=== PATIENT | male | born 1960 | race Caucasian/White ===

== ENCOUNTER 2018-03-08 08:00 | Outpatient (CLI) | payer OTHER ==
[2018-03-08 18:10] LABS: BASOPHILS % (AUTO) 0.5 %; EOSINOPHILS # (AUTO) 0.2 10^3/uL (0.0-0.7); EOSINOPHILS % (AUTO) 2.3 %; HGB - HEMOGLOBIN 14.5 g/dL (14.0-18.0); LYMPHOCYTES # (AUTO) 2.4 10^3/uL (1.5-3.5); MEAN CORPUSCULAR HEMOGLOBIN 31.4 pg (27.0-31.0); MEAN CORPUSCULAR HGB CONC 34.2 g/dL (32.0-36.0); MEAN CORPUSCULAR VOLUME 91.8 fL (80.0-94.0); MEAN PLATELET VOLUME 8.3 fL (7.4-11.4); MONOCYTES # (AUTO) 0.8 10^3/uL (0.0-1.0); MONOCYTES % (AUTO) 10.6 %; NEUTROPHILS # (AUTO) 3.8 10^3/uL (1.5-6.6); NEUTROPHILS % (AUTO) 53.6 %; PLT - PLATELET COUNT 269 10^3/uL (130-450); RED BLOOD COUNT 4.61 10^6/uL (4.70-6.10); RED CELL DISTRIBUTION WIDTH 13.4 % (12.0-15.0); WHITE BLOOD COUNT 7.1 x10^3/uL (4.8-10.8)
[2018-03-08 18:39] LABS: ALBUMIN/GLOBULIN RATIO 1.7 (1.0-2.2); ALKALINE PHOSPHATASE 53 IU/L (42-121); ALT ALANINE AMINOTRANSFERASE 39 IU/L (10-60); AST ASPARTATE AMINOTRANSFERASE 27 IU/L (10-42); BILIRUBIN,TOTAL 0.9 mg/dL (0.2-1.0); BUN - BLOOD UREA NITROGEN 19 mg/dL (6-20); CALCIUM 9.3 mg/dL (8.5-10.3); CARBON DIOXIDE - CO2 29 mmol/L (21-32); CHLORIDE 100 mmol/L (101-111); CHOL/HDL RATIO 2.9 (<5.0); CHOLESTEROL 261 mg/dL; CREATININE 0.7 mg/dL (0.6-1.2); GFR - MDRD 116 (>89); GLUCOSE 97 mg/dL (70-100); HDL CHOLESTEROL 89 mg/dL; LDL CHOLESTEROL,CALCULATED 161 mg/dL; LDL/HDL RATIO 1.8 (<3.6); SODIUM 136 mmol/L (135-145); VLDL CHOLESTEROL 11 mg/dL
[2018-03-08 19:11] LABS: HB2 TOTAL 15.8 g/dL; HEMOGLOBIN A1C 0.64 g/dL; HEMOGLOBIN A1C % 5.9 % (4.6-6.2)
== END 2018-03-08 23:59 | disposition home or self-care (01) ==
LOC: LAB.R 08:00
PROVIDERS: ATTEND Internal Medicine
DX: Z00.00 Encounter for general adult medical examination without abnormal findings (principal); E55.9 Vitamin D deficiency, unspecified; R73.9 Hyperglycemia, unspecified; E78.5 Hyperlipidemia, unspecified
CPT/HCPCS: 80053; 80061; 82306; 83036; 83721; 84153; 85025

== ENCOUNTER 2018-06-26 15:04 | Outpatient (CLI) | payer OTHER | END 2018-06-26 15:05 | disposition home or self-care (01) | LOC: SC 15:04 | PROVIDERS: ATTEND Internal Medicine Pulmonary Disease | DX: R06.81 Apnea, not elsewhere classified (principal); G47.8 Other sleep disorders; R06.83 Snoring; E66.9 Obesity, unspecified; Z68.35 Body mass index [BMI] 35.0-35.9, adult | CPT/HCPCS: 99203; 99212 ==

== ENCOUNTER 2018-12-11 17:34 | Outpatient (CLI) | payer OTHER ==
[2018-12-11 18:05] LABS: HB2 TOTAL 15.8 g/dL; HEMOGLOBIN A1C 0.6 g/dL; HEMOGLOBIN A1C % 5.6 % (4.6-6.2)
[2018-12-11 18:06] LABS: BASOPHILS % (AUTO) 0.5 %; EOSINOPHILS # (AUTO) 0.2 10^3/uL (0.0-0.7); EOSINOPHILS % (AUTO) 2.3 %; HGB - HEMOGLOBIN 14.5 g/dL (14.0-18.0); LYMPHOCYTES # (AUTO) 2.3 10^3/uL (1.5-3.5); LYMPHOCYTES % (AUTO) 30.7 %; MEAN CORPUSCULAR HEMOGLOBIN 30.1 pg (27.0-31.0); MEAN CORPUSCULAR HGB CONC 32.6 g/dL (32.0-36.0); MEAN CORPUSCULAR VOLUME 92.5 fL (80.0-94.0); MEAN PLATELET VOLUME 9.5 fL (7.4-11.4); MONOCYTES # (AUTO) 0.9 10^3/uL (0.0-1.0); MONOCYTES % (AUTO) 11.6 %; NEUTROPHILS # (AUTO) 4.1 10^3/uL (1.5-6.6); NEUTROPHILS % (AUTO) 54.6 %; PLT - PLATELET COUNT 306 10^3/uL (130-450); RED BLOOD COUNT 4.81 10^6/uL (4.70-6.10); RED CELL DISTRIBUTION WIDTH 13.5 % (12.0-15.0); WHITE BLOOD COUNT 7.5 x10^3/uL (4.8-10.8)
[2018-12-11 18:09] LABS: ALBUMIN 4.9 g/dL (3.2-5.5); ALBUMIN/GLOBULIN RATIO 1.7 (1.0-2.2); ALKALINE PHOSPHATASE 52 IU/L (42-121); ALT ALANINE AMINOTRANSFERASE 37 IU/L (10-60); AST ASPARTATE AMINOTRANSFERASE 27 IU/L (10-42); BILIRUBIN,TOTAL 0.9 mg/dL (0.2-1.0); BUN - BLOOD UREA NITROGEN 19 mg/dL (6-20); CALCIUM 9.7 mg/dL (8.5-10.3); CARBON DIOXIDE - CO2 27 mmol/L (21-32); CHLORIDE 102 mmol/L (101-111); CHOLESTEROL 258 mg/dL; CREATININE 0.7 mg/dL (0.6-1.2); GFR - MDRD 116 (>89); GLUCOSE 111 mg/dL (70-100); HDL CHOLESTEROL 85 mg/dL; SODIUM 139 mmol/L (135-145); TOTAL PROTEIN 7.8 g/dL (6.7-8.2)
== END 2018-12-11 17:35 | disposition home or self-care (01) ==
LOC: LAB 17:34
PROVIDERS: ATTEND Family Medicine
DX: E66.01 Morbid (severe) obesity due to excess calories (principal); R73.9 Hyperglycemia, unspecified; M54.5 Low back pain; I10 Essential (primary) hypertension
CPT/HCPCS: 36415; 80053; 80061; 83036; 83721; 84443; 85025

== ENCOUNTER 2020-02-26 08:00 | Outpatient (CLI) | payer OTHER ==
[2020-02-26 11:51] LABS: BASOPHILS % (AUTO) 0.3 %; EOSINOPHILS # (AUTO) 0.2 10^3/uL (0.0-0.7); EOSINOPHILS % (AUTO) 2.7 %; HGB - HEMOGLOBIN 14.8 g/dL (14.0-18.0); LYMPHOCYTES # (AUTO) 2.1 10^3/uL (1.5-3.5); LYMPHOCYTES % (AUTO) 34.4 %; MEAN CORPUSCULAR HEMOGLOBIN 30.3 pg (27.0-31.0); MEAN CORPUSCULAR HGB CONC 33.1 g/dL (32.0-36.0); MEAN CORPUSCULAR VOLUME 91.6 fL (80.0-94.0); MEAN PLATELET VOLUME 10.2 fL (7.4-11.4); MONOCYTES # (AUTO) 0.7 10^3/uL (0.0-1.0); MONOCYTES % (AUTO) 11.5 %; NEUTROPHILS % (AUTO) 50.6 %; PLT - PLATELET COUNT 301 10^3/uL (130-450); RED BLOOD COUNT 4.88 10^6/uL (4.70-6.10)
[2020-02-26 12:18] LABS: ALBUMIN 4.8 g/dL (3.2-5.5); ALBUMIN/GLOBULIN RATIO 1.7 (1.0-2.2); ALKALINE PHOSPHATASE 57 IU/L (42-121); ALT ALANINE AMINOTRANSFERASE 34 IU/L (10-60); AST ASPARTATE AMINOTRANSFERASE 27 IU/L (10-42); BILIRUBIN,TOTAL 0.9 mg/dL (0.2-1.0); BUN - BLOOD UREA NITROGEN 17 mg/dL (6-20); CALCIUM 9.3 mg/dL (8.5-10.3); CARBON DIOXIDE - CO2 25 mmol/L (21-32); CHLORIDE 102 mmol/L (101-111); CHOL/HDL RATIO 2.6 (<5.0); CHOLESTEROL 256 mg/dL; CREATININE 0.7 mg/dL (0.6-1.2); GLUCOSE 109 mg/dL (70-100); HDL CHOLESTEROL 97 mg/dL; SODIUM 138 mmol/L (135-145); TOTAL PROTEIN 7.7 g/dL (6.7-8.2)
== END 2020-02-26 23:59 | disposition home or self-care (01) ==
LOC: LAB.WCP 08:00
PROVIDERS: ATTEND Family Medicine
DX: I10 Essential (primary) hypertension (principal); E78.5 Hyperlipidemia, unspecified; R73.9 Hyperglycemia, unspecified; E55.9 Vitamin D deficiency, unspecified; K21.9 Gastro-esophageal reflux disease without esophagitis; E66.01 Morbid (severe) obesity due to excess calories
CPT/HCPCS: 36415; 80053; 80061; 82306; 83036; 83721; 84153; 84443; 85025

== ENCOUNTER 2020-03-22 14:00 | Outpatient (CLI) | payer OTHER ==
[2020-03-22 16:30] LABS: H. PYLORIS ANTIGEN STL NEGATIVE (Negative)
== END 2020-03-22 23:59 | disposition home or self-care (01) ==
LOC: LAB.R 14:00
PROVIDERS: ATTEND Family Medicine
DX: K21.9 Gastro-esophageal reflux disease without esophagitis (principal)
CPT/HCPCS: 87338

== ENCOUNTER 2020-04-26 10:06 | Outpatient (CLI) | payer OTHER | END 2020-04-26 10:07 | disposition home or self-care (01) | LOC: LAB 10:06 | DX: R97.20 Elevated prostate specific antigen [PSA] (principal) | CPT/HCPCS: 36415; 84153 ==

== ENCOUNTER 2021-02-24 08:52 | Outpatient (CLI) | payer OTHER ==
[2021-02-24 13:18] LABS: BASOPHILS % (AUTO) 0.8 %; EOSINOPHILS # (AUTO) 0.1 10^3/uL (0.0-0.7); EOSINOPHILS % (AUTO) 1.9 %; HCT - HEMATOCRIT 42.4 % (42.0-52.0); HGB - HEMOGLOBIN 14.1 g/dL (14.0-18.0); LYMPHOCYTES # (AUTO) 1.5 10^3/uL (1.5-3.5); LYMPHOCYTES % (AUTO) 40.4 %; MEAN CORPUSCULAR HEMOGLOBIN 30.9 pg (27.0-31.0); MEAN CORPUSCULAR HGB CONC 33.3 g/dL (32.0-36.0); MEAN PLATELET VOLUME 9.6 fL (7.4-11.4); MONOCYTES # (AUTO) 0.6 10^3/uL (0.0-1.0); MONOCYTES % (AUTO) 16.4 %; NEUTROPHILS # (AUTO) 1.5 10^3/uL (1.5-6.6); NEUTROPHILS % (AUTO) 40.2 %; PLT - PLATELET COUNT 291 10^3/uL (130-450); RED BLOOD COUNT 4.56 10^6/uL (4.70-6.10); RED CELL DISTRIBUTION WIDTH 13.2 % (12.0-15.0); WHITE BLOOD COUNT 3.7 x10^3/uL (4.8-10.8)
[2021-02-24 13:33] LABS: ALBUMIN/GLOBULIN RATIO 2.1 (1.0-2.2); ALKALINE PHOSPHATASE 52 IU/L (42-121); ALT ALANINE AMINOTRANSFERASE 29 IU/L (10-60); AST ASPARTATE AMINOTRANSFERASE 28 IU/L (10-42); BILIRUBIN,TOTAL 0.7 mg/dL (0.2-1.0); BUN - BLOOD UREA NITROGEN 17 mg/dL (6-20); CALCIUM 9.4 mg/dL (8.5-10.3); CARBON DIOXIDE - CO2 29 mmol/L (21-32); CHLORIDE 99 mmol/L (101-111); CHOL/HDL RATIO 2.6 (<5.0); CHOLESTEROL 273 mg/dL; CREATININE 0.6 mg/dL (0.6-1.2); GFR - MDRD 137 (>89); GLUCOSE 114 mg/dL (70-100); HDL CHOLESTEROL 106 mg/dL; POTASSIUM 4.1 mmol/L (3.5-5.0); SODIUM 137 mmol/L (135-145); TOTAL PROTEIN 7.4 g/dL (6.7-8.2); TRIGLYCERIDES 24 mg/dL
== END 2021-02-24 08:53 | disposition home or self-care (01) ==
LOC: LAB.N 08:52
PROVIDERS: ATTEND Family Medicine
DX: I10 Essential (primary) hypertension (principal); Z12.5 Encounter for screening for malignant neoplasm of prostate
CPT/HCPCS: 36415; 80053; 80061; 83721; 84153; 85025

== ENCOUNTER 2021-04-02 11:27 | Emergency (ER) | payer OTHER ==
[2021-04-02 11:42] VITALS: BP 146/85
--- NOTE | 2021-04-02 12:02 | ED Physician Documentation ---
History of Present Illness - Stated complaint Stated Complaint: NECK PX,SHOULDER PX - Chief complaint Chief Complaint: General - History obtained from History obtained from: Patient - History of Present Illness Timing: How many days ago Pain level max: 6 Pain level now: 4 - Additonal information Additional information: 60-year-old male states he was at work 3 days ago when he slipped on ice injuring his right shoulder and the right side of his neck. He has taken the last 2 to 3 days off of work and now needs a note for work. Worse with movement, better with rest. No loss of consciousness. No numbness or tingling. No headache. Review of Systems Ten Systems: 10 systems reviewed and negative Constitutional: denies: Fever, Chills Respiratory: denies: Cough GI: denies: Nausea, Vomiting, Diarrhea Skin: denies: Rash Musculoskeletal: denies: Neck pain, Back pain Neurologic: denies: Headache PD PAST MEDICAL HISTORY - Past Medical History Past Medical History: No - Allergies Allergies/Adverse Reactions: Allergies Allergy/AdvReac Type Severity Reaction Status Date / Time No Known Drug Allergies Allergy Verified 04/02/21 11:42 - Living Situation Living Arrangement: reports: At home - Social History Does the pt have substance abuse?: No - Family History Family history: reports: Non contributory PD ED PE NORMAL - Vitals Vital signs reviewed: Yes - General General: Alert and oriented X 3, No acute distress, Well developed/nourished - HEENT HEENT: Atraumatic, Moist mucous membranes - Neck Neck: Supple, no meningeal sign, No bony TTP, C-Spine cleared by NEXUS criteria - Cardiac Cardiac: RRR, Strong equal pulses - Respiratory Respiratory: No respiratory distress, Clear bilaterally - Abdomen Abdomen: Soft, Non tender, Non distended - Back Back: No spinal TTP - Derm Derm: Warm and dry - Extremities Extremities: Other (no bony tenderness over the R shoulder, R clavicle or cervical spine. NVI. FROM without pain. no rotator cuff tednerness.) - Neuro Neuro: Alert and oriented X 3 - Psych Psych: Normal mood, Normal affect Results - Vitals Vitals: Vital Signs - 24 hr 04/02/21 11:38 Temperature 36 C L Heart Rate 96 Respiratory 15 Rate Blood Pressure 146/85 H O2 Saturation 100 Oxygen O2 Source Room air PD MEDICAL DECISION MAKING - ED course Complexity details: considered differential, d/w patient ED course: 60 year old male with R shoulder pain s/p fall 2 days ago. worse with movement and better with rest. No indication for x-ray at this time. Appears to be a soft tissue injury. We will have him follow-up with his doctor for further care. We will continue to use Motrin and/or Tylenol as needed for pain. Patient counseled regarding signs and symptoms for which I believe and urgent re -evaluation would be necessary. Patient with good understanding of and agreement to plan and is comfortable going home at this time This document was made in part using voice recognition software. While efforts are made to proofread this document, sound alike and grammatical errors may occur. L&I paperwork filled out Departure - Departure Disposition: 01 Home, Self Care Clinical Impression: Right shoulder strain Qualifiers: Encounter type: initial encounter Qualified Code(s): S46.911A - Strain of unspecified muscle, fascia and tendon at shoulder and upper arm level, right arm, initial encounter Neck strain Qualifiers: Encounter type: initial encounter Qualified Code(s): S16.1XXA - Strain of muscle, fascia and tendon at neck level, initial encounter Condition: Good Instructions: ED Sprain Strain Neck, ED Sprain Shoulder Follow-Up: Hannah Mckenzie DO [Primary Care Provider] - Within 1 week Comments: Please follow-up with your doctor for further care. Return if you worsen. Continue Motrin, Tylenol and gentle stretching at home. Forms: Activity restrictions
== END 2021-04-02 12:27 | disposition home or self-care (01) ==
LOC: ED 11:27
DX: S46.911A Strain of unspecified muscle, fascia and tendon at shoulder and upper arm level, right arm, initial encounter (principal); S16.1XXA Strain of muscle, fascia and tendon at neck level, initial encounter; W00.0XXA Fall on same level due to ice and snow, initial encounter; Y99.0 Civilian activity done for income or pay
CPT/HCPCS: 99282

== ENCOUNTER 2021-07-16 06:26 | Day surgery (SDC) | payer OTHER ==
[2021-07-16] MEDS ORDERED: LACTATED RINGERS 1,000 ML IV ONE ×2 (06:49→08:11)
[2021-07-16] MEDS ORDERED: PROPOFOL 500 MG/50 ML 500 MG/50 ML VIAL ONE (07:11)
--- NOTE | 2021-07-16 07:11 | ANESTHESIA ---
Pre-Anesthesia VS, & Labs - Diagnosis screening - Procedure colonoscopy Vital Signs: Temp Pulse Resp BP Pulse Ox 36.4 C L 75 16 155/96 H 97 07/16/21 06:38 07/16/21 06:38 07/16/21 06:38 07/16/21 06:38 07/16/21 06:38 Height: 6 ft Weight (kg): 105.2 kg Body Mass Index: 31.4 BMI Classification: Obese - NPO >8 hours Home Medications and Allergies Home Medications: Ambulatory Orders Lisinopril [Zestril] 40 mg PO DAILY 07/15/21 Multivitamin 1 each PO DAILY 07/15/21 amLODIPine [Norvasc] 10 mg PO DAILY 07/15/21 Lisinopril [Zestril] 40 mg PO DAILY 07/15/21 Multivitamin 1 each PO DAILY 07/15/21 amLODIPine [Norvasc] 10 mg PO DAILY 07/15/21 Allergies/Adverse Reactions: Allergies Allergy/AdvReac Type Severity Reaction Status Date / Time No Known Drug Allergies Allergy Verified 04/02/21 11:42 Anes History & Medical History - Anesthetic History Anesthesia Complications: reports: No previous complications Family history of Anesthesia Complications: Denies Family history of Malignant Hyperthermia: Denies - Medical History Cardiovascular: reports: None Pulmonary: reports: None Gastrointestinal: reports: GERD Urinary: reports: None Neuro: reports: None Musculoskeletal: reports: None Endocrine/Autoimmune: reports: None Blood Disorders: reports: None Skin: reports: None Smoking Status: Never smoker - Surgical History General: reports: Colonoscopy Orthopedic: reports: Carpal Tunnel surgery Exam General: Alert, Oriented x3, Cooperative, No acute distress Dental: WNL Mouth Openin Fingerbreadth Neck Mobility: Normal Mallampati classification: II Plan Anesthesia Type: General, Total IV Consent for Procedure(s) Verified and Reviewed: Yes Code Status: Attempt Resuscitation ASA classification: 2-Mild systemic disease Is this case an emergency?: No
--- NOTE | 2021-07-16 07:21 | HISTORY & PHYSICAL EXAMINATION ---
Chief Complaint - Chief Complaint Chief Complaint: here for colon cancer screening History of Present Illness - History Obtained From Records Reviewed: yes History obtained from: pt Exam Limitations: none - History of Present Illness HPI Comment/Other: normal colonoscopy 11 years ago. here for colon cancer screening. no problems History - Past Medical History Cardiovascular: reports: None Respiratory: reports: None Neuro: reports: None Endocrine/Autoimmune: reports: None GI: reports: GERD : reports: None HEENT: reports: None Psych: reports: None Musculoskeletal: reports: None Derm: reports: None MRSA Hx?: No - Past Surgical History General: reports: Colonoscopy Ortho: reports: Carpal Tunnel surgery Meds/Allgy - Home Medications Home Medications: Ambulatory Orders Medication Instructions Recorded Confirmed Lisinopril [Zestril] 40 mg PO DAILY 07/15/21 07/15/21 Multivitamin 1 each PO DAILY 07/15/21 07/15/21 amLODIPine [Norvasc] 10 mg PO DAILY 07/15/21 07/15/21 - Allergies Allergies/Adverse Reactions: Allergies Allergy/AdvReac Type Severity Reaction Status Date / Time No Known Drug Allergies Allergy Verified 04/02/21 11:42 Review of Systems - Other Findings Other Findings: 10 pt ros as above otherwise unremarkable Exam - Vital Signs Vital Signs: Vital Signs x48h Temp Pulse Resp BP Pulse Ox 07/16/21 06:38 36.4 C L 75 16 155/96 H 97 - Physical Exam General Appearance: positive: No acute distress, Alert Eyes Bilateral: positive: PERRL, EOMI, No scleral icterus ENT: positive: No signs of dehydration Neck: positive: No JVD Respiratory: positive: No respiratory distress, Breath sounds nml Cardiovascular: positive: Regular rate & rhythm Abdomen: positive: Non-tender, No distention Neurologic/Psychiatric: positive: Oriented x3 Conclusion/Plan - Problem List (1) Colon cancer screening Conclusion/Plan: plan colonoscopy. parq held and consent obtained
[2021-07-16] MEDS ORDERED: PROPOFOL 200 MG/20 ML VIAL IVP ONE (08:00)
[2021-07-16 08:31] VITALS: BP 132/86
--- NOTE | 2021-07-16 08:54 | ANESTHESIA POST OP EVALUATION ---
Anesthesia Post Eval - Post Anesthesia Eval Vitals: Last Vital Signs Temp 36.7 C 07/16/21 08:30 Pulse 72 07/16/21 08:30 Resp 18 07/16/21 08:30 BP 132/86 H 07/16/21 08:30 Pulse Ox 99 07/16/21 08:30 CV Function Including HR & BP: Stable Pain Control: Satisfactory Nausea & Vomiting: Negative Mental Status: Baseline Respiratory Status: Airway Patent Hydration Status: Satisfactory Anesthesia Complications: None
== END 2021-07-16 06:27 | disposition home or self-care (01) ==
LOC: SDS 06:26
PROVIDERS: ATTEND Surgery
PROC: 0DBP8ZZ Excision of Rectum, Via Natural or Artificial Opening Endoscopic (ICD-10-PCS; principal; 2021-07-16 07:30)
DX: Z12.11 Encounter for screening for malignant neoplasm of colon (principal); D12.8 Benign neoplasm of rectum; K57.30 Diverticulosis of large intestine without perforation or abscess without bleeding; R06.83 Snoring; E66.9 Obesity, unspecified; Z68.31 Body mass index [BMI] 31.0-31.9, adult
CPT/HCPCS: 45380; 45385; J7120

== ENCOUNTER 2021-12-28 08:42 | Emergency (ER) | payer OTHER ==
[2021-12-28] MEDS ORDERED: LIDOCAINE PATCH 5% TOP STA (10:49)
[2021-12-28] MEDS ORDERED: HYDROmorphone 1 MG/ML CARPUJECT IM STA (10:49)
--- NOTE | 2021-12-28 10:50 | ED Physician Documentation ---
History of Present Illness - Stated complaint Stated Complaint: RT LEG PX - Chief complaint Chief Complaint: Back Pain - History obtained from History obtained from: Patient - Additonal information Additional information: Patient is a 61-year-old male with a history of sciatica presenting for evaluation of lower back pain radiating to the right leg which is been ongoing for 3 weeks. He reports having chronic symptoms and last had an MRI in 2007. At that time they noted a pinched nerve and bulging disc. He did see a spinal surgeon at that time who recommended holding off on surgery and he was advised to go to PT. He is unsure what caused his symptoms to flareup here recently but went to the walk-in clinic in [facility] and was started on a prednisone taper which ended today. He reports the prednisone has not helped with his pain. He was also on a muscle relaxer which has not helped. 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 He has continued to work over the last few weeks. Reports ambulating Makes his symptoms worse. Review of Systems Constitutional: denies: Fever Nose: denies: Congestion Cardiac: denies: Chest pain / pressure Respiratory: denies: Dyspnea GI: denies: Abdominal Pain : denies: Dysuria Musculoskeletal: reports: Back pain, Extremity pain Neurologic: denies: Headache PD PAST MEDICAL HISTORY - Past Medical History Cardiovascular: None Respiratory: None Neuro: None Endocrine/Autoimmune: None GI: GERD : None HEENT: None Psych: None Musculoskeletal: None Derm: None - Past Surgical History Past Surgical History: No General: Colonoscopy Ortho: Carpal Tunnel surgery - Present Medications Home Medications: Ambulatory Orders Medication Instructions Recorded Confirmed Lisinopril [Zestril] 40 mg PO DAILY 07/15/21 07/15/21 Multivitamin 1 each PO DAILY 07/15/21 07/15/21 amLODIPine [Norvasc] 10 mg PO DAILY 07/15/21 07/15/21 Lidocaine Patch 5% [Lidoderm Patch] 1 patch TOP DAILY PRN #10 patch 12/28/21 Oxycodone HCl/Acetaminophen 1 each PO Q6H PRN #14 tablet 12/28/21 [Percocet 5-325 mg Tablet] - Allergies Allergies/Adverse Reactions: Allergies Allergy/AdvReac Type Severity Reaction Status Date / Time No Known Drug Allergies Allergy Verified 04/02/21 11:42 - Social History Does the pt smoke?: No Smoking Status: Never smoker Does the pt drink ETOH?: No Does the pt have substance abuse?: No - Immunizations Immunizations are current?: Yes PD ED PE NORMAL - General General: Alert and oriented X 3, No acute distress, Well developed/nourished - HEENT HEENT: Atraumatic, Moist mucous membranes - Neck Neck: Supple, no meningeal sign, No bony TTP - Cardiac Cardiac: RRR, No murmur, Strong equal pulses - Respiratory Respiratory: No respiratory distress, Clear bilaterally - Back Back: No spinal TTP - Extremities Extremities: No deformity, No tenderness to palpate, No calf tenderness / cord, Other (Positive Sitting straight leg raise On the right, pedal pulses intact, Normal range of motion at right hip and knee without pain) - Neuro Neuro: No motor deficit, No sensory deficit, Other (Ambulatory) Results - Vitals Vitals: Vital Signs - 24 hr 12/28/21 12/28/21 12/28/21 08:56 11:17 11:18 Temperature 36.6 C 36.6 C Heart Rate 90 82 Respiratory 17 19 Rate Blood Pressure 127/86 H 106/70 87/58 L O2 Saturation 96 97 12/28/21 12/28/21 12/28/21 11:19 11:32 12:15 Temperature 36.5 C 36.7 C Heart Rate 79 82 80 Respiratory 16 Rate Blood Pressure 71/48 L 90/57 L 122/79 O2 Saturation 98 97 100 Oxygen O2 Source Room air PD MEDICAL DECISION MAKING - ED course Complexity details: re-evaluated patient, d/w patient ED course: Patient evaluated for low back pain with radiation to the right leg consistent with his history of sciatica. No red flag signs or symptoms concerning for cord compression or epidural hematoma, abscess. Patient given dose of pain medication with some improvement. He is ambulatory. Discussed need for close follow-up with his primary care doctor as he may need an outpatient MRI. He is awaiting referral to spine surgeon. He was counseled on concerning symptoms to return for. Departure - Departure Disposition: 01 Home, Self Care Clinical Impression: Right sided sciatica Condition: Stable Instructions: ED Sciatica Prescriptions: Lidocaine Patch 5% [Lidoderm Patch] 1 patch TOP DAILY PRN #10 patch PRN Reason: pain Oxycodone HCl/Acetaminophen [Percocet 5-325 mg Tablet] 1 each PO Q6H PRN #14 tablet PRN Reason: pain Comments: You appear to be having an exacerbation of your sciatica pain. I have started you on pain medication and lidocaine patches. I have sent a prescription to the [facility] pharmacy. Please call your primary care doctor for close follow-up as you may need further testing or imaging such as an MRI.If you have any worsening symptoms such as weakness in your leg, inability to control urine or bowel function, fevers or any other concerns please return to the emergency department. I am prescribing a short course of narcotic pain medication for you. These are potentially dangerous and addictive medications that should be used carefully. These medications may constipate you. Take an [id number]-und-vduckll stool softener (docusate) twice daily with plenty of water while taking these medications. If you go 24 hours without a bowel movement, take [id number] miralax, per package instructions. Do not drink or drive while taking these medications. If you received narcotic or sedating medications while in the emergency department, do not drive for 24 hours. Store this medication in a safe, secure place and out of reach of children. It is a violation of federal law to give or sell this medication to another person or to use in a manner other than prescribed. The ED will not refill narcotic prescriptions, including prescriptions lost or stolen. To dispose of unwanted medications: 1. [facility] at [address] in [place] has a medication drop box. They accept prescription medications (in pill form) Tuesday through Tuesday 9:00 a.m. to 5:00 p.m. 2. The [facility] [employer] accepts prescription medications (in pill form only) for disposal year round. Call for more information. 3. Contact the [facility] for the next [facility] sponsored prescription drug collection event. , [phone], or [phone]; Note that many narcotic pain relievers also contain Tylenol/acetaminophen. Please ensure that your total dose of acetaminophen from all sources does not exceed 3 g (3000 mg) per day. Forms: Activity restrictions Discharge Date/Time: 12/28/21 12:17
[2021-12-28 12:17] VITALS: BP 122/79
== END 2021-12-28 12:17 | disposition home or self-care (01) ==
LOC: ED 08:42
DX: M54.31 Sciatica, right side (principal)
CPT/HCPCS: 96372; 99283; 99284; A9270; J1170

== ENCOUNTER 2022-02-22 08:00 | Outpatient (CLI) | payer OTHER ==
[2022-02-22 06:46] LABS: BASOPHILS % (AUTO) 0.5 %; EOSINOPHILS # (AUTO) 0.2 10^3/uL (0.0-0.7); EOSINOPHILS % (AUTO) 4.1 %; HCT - HEMATOCRIT 42.7 % (42.0-52.0); HGB - HEMOGLOBIN 14.5 g/dL (14.0-18.0); LYMPHOCYTES # (AUTO) 2.2 10^3/uL (1.5-3.5); LYMPHOCYTES % (AUTO) 39.2 %; MEAN CORPUSCULAR HEMOGLOBIN 30.7 pg (27.0-31.0); MEAN CORPUSCULAR VOLUME 90.3 fL (80.0-94.0); MEAN PLATELET VOLUME 9.2 fL (7.4-11.4); MONOCYTES # (AUTO) 0.8 10^3/uL (0.0-1.0); MONOCYTES % (AUTO) 14.4 %; NEUTROPHILS # (AUTO) 2.3 10^3/uL (1.5-6.6); NEUTROPHILS % (AUTO) 41.6 %; PLT - PLATELET COUNT 291 10^3/uL (130-450); RED BLOOD COUNT 4.73 10^6/uL (4.70-6.10); WHITE BLOOD COUNT 5.6 x10^3/uL (4.8-10.8)
[2022-02-22 06:59] LABS: THYROID STIMULATING HORMONE 2.2 uIU/mL (0.34-5.60)
[2022-02-22 07:20] LABS: ALBUMIN 4.4 g/dL (3.2-5.5); ALBUMIN/GLOBULIN RATIO 1.4 (1.0-2.2); ALKALINE PHOSPHATASE 55 IU/L (42-121); ALT ALANINE AMINOTRANSFERASE 36 IU/L (10-60); AST ASPARTATE AMINOTRANSFERASE 22 IU/L (10-42); BILIRUBIN,TOTAL 0.7 mg/dL (0.2-1.0); BUN - BLOOD UREA NITROGEN 22 mg/dL (6-20); CALCIUM 9.4 mg/dL (8.5-10.3); CARBON DIOXIDE - CO2 25 mmol/L (21-32); CHLORIDE 106 mmol/L (101-111); CHOL/HDL RATIO 3.9 (<5.0); CHOLESTEROL 262 mg/dL; CREATININE 0.7 mg/dL (0.6-1.2); GFR - MDRD 115 (>89); GLUCOSE 110 mg/dL (70-100); HDL CHOLESTEROL 68 mg/dL; LDL CHOLESTEROL,CALCULATED 185 mg/dL; LDL/HDL RATIO 2.7 (<3.6); SODIUM 141 mmol/L (135-145); TOTAL PROTEIN 7.5 g/dL (6.7-8.2); TRIGLYCERIDES 44 mg/dL; VLDL CHOLESTEROL 9 mg/dL
[2022-02-22 08:07] LABS: ESTIMATED AVERAGE GLUCOSE 117 mg/dL (70-100); HEMOGLOBIN A1c% 5.7 % (4.27-6.07)
== END 2022-02-22 08:01 | disposition home or self-care (01) ==
LOC: LAB.R 08:00
PROVIDERS: ATTEND Physician Assistant
DX: I10 Essential (primary) hypertension (principal); E78.5 Hyperlipidemia, unspecified; R73.01 Impaired fasting glucose; R97.20 Elevated prostate specific antigen [PSA]
CPT/HCPCS: 80053; 80061; 83036; 83721; 84153; 84443; 85025

== ENCOUNTER 2022-02-24 08:00 | Outpatient (CLI) | payer OTHER | END 2022-02-24 08:01 | disposition home or self-care (01) | LOC: DI 08:00 | PROVIDERS: ATTEND Physician Assistant | DX: I34.0 Nonrheumatic mitral (valve) insufficiency (principal); I51.7 Cardiomegaly | CPT/HCPCS: 86880; 86900; 86901; 93306 ==

== ENCOUNTER 2022-05-07 17:16 | Outpatient (CLI) | payer OTHER ==
[2022-05-07 21:14] LABS: BILIRUBIN,URINE NEGATIVE (NEGATIVE); GLUCOSE, URINE (UA) NEGATIVE (NEGATIVE); KETONES,URINE (UA) NEGATIVE (NEGATIVE); LEUKOCYTE ESTERASE, URINE NEGATIVE (NEGATIVE); NITRITE,URINE NEGATIVE (NEGATIVE); OCCULT BLOOD,URINE NEGATIVE (NEGATIVE); PROTEIN,URINE NEGATIVE (NEGATIVE); UROBILINOGEN,URINE 0.2 (NORMAL) E.U./dL (NORMAL)
[2022-05-07 21:15] LABS: BASOPHILS % (AUTO) 0.4 %; EOSINOPHILS # (AUTO) 0.2 10^3/uL (0.0-0.7); HCT - HEMATOCRIT 44.9 % (42.0-52.0); HGB - HEMOGLOBIN 14.5 g/dL (14.0-18.0); LYMPHOCYTES # (AUTO) 2.7 10^3/uL (1.5-3.5); LYMPHOCYTES % (AUTO) 33.4 %; MEAN CORPUSCULAR HEMOGLOBIN 29.4 pg (27.0-31.0); MEAN CORPUSCULAR HGB CONC 32.3 g/dL (32.0-36.0); MEAN CORPUSCULAR VOLUME 90.9 fL (80.0-94.0); MEAN PLATELET VOLUME 10.9 fL (7.4-11.4); MONOCYTES # (AUTO) 0.8 10^3/uL (0.0-1.0); MONOCYTES % (AUTO) 10.3 %; NEUTROPHILS # (AUTO) 4.2 10^3/uL (1.5-6.6); NEUTROPHILS % (AUTO) 52.8 %; PLT - PLATELET COUNT 321 10^3/uL (130-450); RED BLOOD COUNT 4.94 10^6/uL (4.70-6.10); RED CELL DISTRIBUTION WIDTH 12.5 % (12.0-15.0); WHITE BLOOD COUNT 7.9 x10^3/uL (4.8-10.8)
[2022-05-07 21:16] LABS: INR 1.1 (0.8-1.2); PT - PROTHROMBIN TIME 12.5 secs (9.9-12.6)
[2022-05-07 21:26] LABS: ALBUMIN 4.7 g/dL (3.2-5.5); ALBUMIN/GLOBULIN RATIO 1.7 (1.0-2.2); BILIRUBIN,TOTAL 0.6 mg/dL (0.2-1.0); CALCIUM 9.1 mg/dL (8.5-10.3); CREATININE 0.9 mg/dL (0.6-1.2); TOTAL PROTEIN 7.4 g/dL (6.7-8.2)
[2022-05-07 21:36] LABS: BACTERIA,URINE None Seen /HPF (None Seen); CLARITY,URINE CLEAR (CLEAR); RBC,URINE None Seen /HPF (0-5); SQUAMOUS EPITHELIAL CELL,UR NONE SEEN (<= Few); WBC,URINE 0-3 /HPF (0-3)
== END 2022-05-07 17:17 | disposition home or self-care (01) ==
LOC: LAB.N 17:16
PROVIDERS: ATTEND Physician Assistant
DX: I10 Essential (primary) hypertension (principal); M54.50 Low back pain, unspecified; M54.16 Radiculopathy, lumbar region
CPT/HCPCS: 36415; 80053; 81001; 85025; 85610; 85730; 87086

== ENCOUNTER 2022-09-07 14:37 | Emergency (ER) | payer OTHER ==
[2022-09-07 14:47] VITALS: BP 130/89
--- NOTE | 2022-09-07 14:48 | ED Physician Documentation ---
PD HPI ABD PAIN - Stated complaint Stated Complaint: MALE - Chief complaint Chief Complaint: Abd Pain - History obtained from History obtained from: Patient - History of Present Illness Timing - onset: How many days ago (6) Timing - duration: Days (6) Timing - details: Gradual onset (he had back surgery 5 days ago and had not had BM since day prior to that. Some bladder area fullness and pressure with hesitancy geting urination started and feelingincomplete emptying.), Still present Quality: Cramping, Aching Location: Suprapubic, Other (and fullness feeling in rectum.) Review of Systems Constitutional: denies: Fever, Chills, Myalgias Nose: denies: Rhinorrhea / runny nose, Congestion Throat: denies: Sore throat Respiratory: denies: Cough GI: reports: Nausea, Constipation : reports: Hesitancy Skin: reports: Rash PD PAST MEDICAL HISTORY - Past Medical History Cardiovascular: None Respiratory: None Neuro: None Endocrine/Autoimmune: None GI: GERD : None HEENT: None Psych: None Musculoskeletal: None Derm: None - Past Surgical History Past Surgical History: No General: Colonoscopy Ortho: Carpal Tunnel surgery - Present Medications Home Medications: Ambulatory Orders Medication Instructions Recorded Confirmed Lisinopril [Zestril] 40 mg PO DAILY 07/15/21 07/15/21 Multivitamin 1 each PO DAILY 07/15/21 07/15/21 amLODIPine [Norvasc] 10 mg PO DAILY 07/15/21 07/15/21 Lidocaine Patch 5% [Lidoderm Patch] 1 patch TOP DAILY PRN #10 patch 12/28/21 Oxycodone HCl/Acetaminophen 1 each PO Q6H PRN #14 tablet 12/28/21 [Percocet 5-325 mg Tablet] - Allergies Allergies/Adverse Reactions: Allergies Allergy/AdvReac Type Severity Reaction Status Date / Time sulfite Allergy Respiratory Verified 09/07/22 14:46 - Social History Does the pt smoke?: No Smoking Status: Never smoker Does the pt drink ETOH?: No Does the pt have substance abuse?: No - Immunizations Immunizations are current?: Yes PD ED PE NORMAL - General General: Alert and oriented X 3, No acute distress, Well developed/nourished - Cardiac Cardiac: RRR, No murmur - Respiratory Respiratory: No respiratory distress, Clear bilaterally - Abdomen Abdomen: Normal bowel sounds, Soft, Non tender, No organomegaly, Other (fullness in suprapubic area. ) - Rectal Rectal: Other (digital exam showed just some soft stool in vault. No impaction. No hemorhoid nor bleeding. ) Results - Vitals Vitals: Vital Signs - 24 hr 09/07/22 14:42 Temperature 36.4 C L Heart Rate 85 Respiratory 16 Rate Blood Pressure 130/89 H O2 Saturation 98 Oxygen O2 Source Room air PD Medical Decision Making - ED course Complexity details: considered differential (5 days post-op back surgery without signs of infection or new illness. Has not had BM since dfay prior to surgery. Mercedes Segura as suggested by surgeon post op instructions. He is feeling some fullness in rectal area but not getting much other than smalll bits of stool. Some lower abd crampinhg.), d/w patient, d/w family ED course: he and his are present. I talked with them about starting more treatments but we don't commonly get a ton of stool out here in ER, but initiate. Can give enema here and start some softener, but the main therapy of it would continue/be at home. Given saline enema (mineral oil ones were out of stock inhospital). Also a dose of lactulose. I wondered if some of the fulllness and pressure were from bladdder insteac as there was some suprapubic fullness. he had about 55ml on bladder scan, but then voided 220 ml. shared decision to not place benjamin as this is not excessive residual that I would think overstretching of bladder. And he did vooid have of it. It seems likely opioid induced and ost-surgical slow transit constipation. Can try combno of laxatives and softeneres. His back wound looks good. Departure - Departure Disposition: 01 Home, Self Care Clinical Impression: Urinary retention, Constipation, S/P lumbar laminectomy Condition: Stable Record reviewed to determine appropriate education?: Yes Instructions: ED Constipation Follow-Up: Zoraida Aviles PA [Primary Care Provider] - Comments: Your rectal vault did not really have much stool there so not impacted at the bottom. We did give a extra enema here and hopefully that will increase some peristalsis/gut movement. It may or may not actually cleanse out some stool from the bottom per se. I would have you continue with the senna and you could also add bisacodyl. These are irritant laxatives to try to inspire the gut movement. You can also work on softening of the stool concurrently with the MiraLAX that you have at home. You can take it every 1-2 hours for several doses this evening, and resume tomorrow if still not movements yet. See if this gets your stools more moving. A lot of is just related to the pain medicine and inactivity. Some ambulation is good. You did have some partial urinary retention. I think is not enough to warrant a catheter at this point but if it does feel like you are having worsening bladder fullness, that might be needed. Return if feeling that way. Otherwise follow-up with your back surgeon. Right now your wound looks good and there are no "warning signs" of bad things. Hopefully your pain will be decreasing over the next week as the worst postoperative pain tends to be the 1 to 2 weeks initially. Discharge Date/Time: 09/07/22 16:40
[2022-09-07] MEDS ORDERED: MINERAL OIL ENEMA 133 ML BOTTLE RC STA (15:08)
[2022-09-07] MEDS ORDERED: LACTULOSE 10 GM /15 ML UDC PO STA (15:08)
[2022-09-07] MEDS ORDERED: bisacodyL 5 MG TABLET PO STA (15:09)
[2022-09-07] MEDS ORDERED: SALINE ENEMA 133 ML BOTTLE RC STA (15:17)
== END 2022-09-07 16:40 | disposition home or self-care (01) ==
LOC: ED 14:37
DX: R33.9 Retention of urine, unspecified (principal); K59.00 Constipation, unspecified
CPT/HCPCS: 51798; 99282; 99283; A9270

== ENCOUNTER 2022-09-10 02:07 | Emergency (ER) | payer OTHER ==
[2022-09-10 02:20] VITALS: O2SAT 97
[2022-09-10] MEDS ORDERED: HYDROmorphone 1 MG/ML CARPUJECT IM STA (02:36)
[2022-09-10] MEDS ORDERED: diazePAM 5 MG TABLET PO STA (02:36)
--- NOTE | 2022-09-10 02:38 | ED Physician Documentation ---
History of Present Illness - Stated complaint Stated Complaint: BODY PX/SLEEPLESS - Chief complaint Chief Complaint: Back Pain - History obtained from History obtained from: Patient, Family () - Additonal information Additional information: 62-year-old man presents postop day status postL2-L5 laminectomy and L5-S1 fusion. Patient has been having pain since the surgery refractory to Percocet. Patient was unable to sleep tonight.Denies fever, numbness, urinary or fecal incontinence or retention. PD PAST MEDICAL HISTORY - Past Medical History Cardiovascular: None Respiratory: None Neuro: None Endocrine/Autoimmune: None GI: GERD : None HEENT: None Psych: None Musculoskeletal: None Derm: None - Past Surgical History Past Surgical History: No General: Colonoscopy Ortho: Carpal Tunnel surgery - Present Medications Home Medications: Ambulatory Orders Medication Instructions Recorded Confirmed Lisinopril [Zestril] 40 mg PO DAILY 07/15/21 07/15/21 Multivitamin 1 each PO DAILY 07/15/21 07/15/21 amLODIPine [Norvasc] 10 mg PO DAILY 07/15/21 07/15/21 Lidocaine Patch 5% [Lidoderm Patch] 1 patch TOP DAILY PRN #10 patch 12/28/21 Oxycodone HCl/Acetaminophen 1 each PO Q6H PRN #14 tablet 12/28/21 [Percocet 5-325 mg Tablet] predniSONE [Prednisone 21-TAB dose 60 mg PO QDAC 6 Days #21 tab 09/10/22 pack] - Allergies Allergies/Adverse Reactions: Allergies Allergy/AdvReac Type Severity Reaction Status Date / Time sulfite Allergy Respiratory Verified 09/10/22 02:19 - Social History Does the pt smoke?: No Smoking Status: Never smoker Does the pt drink ETOH?: No Does the pt have substance abuse?: No - Immunizations Immunizations are current?: Yes PD ED PE NORMAL - Vitals Vital signs reviewed: Yes - General General: Alert and oriented X 3, No acute distress, Well developed/nourished - Back Back: Other (Surgical sites clean with milo in place. No signs of infection) - Derm Derm: Normal color, Warm and dry Results - Vitals Vitals: Vital Signs - 24 hr 09/10/22 02:14 Temperature 36.2 C L Heart Rate 84 Respiratory 17 Rate Blood Pressure 146/83 H O2 Saturation 97 Oxygen O2 Source Room air PD Medical Decision Making - ED course ED course: 62-year-old male presents with postoperative back pain. IM injection of Dilaudid provided as well as oral Valium. 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 I also provided a steroid taper for him. Return precautions given. Plan to follow-up with primary care provider Departure - Departure Disposition: Home, Self Care Clinical Impression: Back pain Condition: Stable Instructions: ED Neck Back Pain General Prescriptions: predniSONE [Prednisone 21-TAB dose pack] 60 mg PO QDAC 6 Days #21 tab Comments: You were seen in the emergency department for back pain after surgery. Please follow-up with your surgeon. Paper prescription for prednisone taper was printed out for you. Return to the emergency department for new or worsening symptoms or other concerns
[2022-09-10 03:11] VITALS: BP 142/76
== END 2022-09-10 03:05 | disposition home or self-care (01) ==
LOC: ED 02:07
DX: G89.18 Other acute postprocedural pain (principal); M79.662 Pain in left lower leg; M79.661 Pain in right lower leg; M54.9 Dorsalgia, unspecified
CPT/HCPCS: 96372; 99283; A9270; J1170; J7512

== ENCOUNTER 2022-09-10 05:01 | Outpatient (CLI) | payer OTHER | END 2022-09-10 23:59 | disposition critical access hospital (66) | LOC: EMS 05:01 | DX: M54.50 Low back pain, unspecified (principal); Z98.1 Arthrodesis status; Z72.820 Sleep deprivation | CPT/HCPCS: A0425; A0429 ==

== ENCOUNTER 2022-09-10 05:12 | Emergency (ER) | payer OTHER ==
[2022-09-10] MEDS ORDERED: KETOROLAC 30 MG/ML VIAL IM STA (05:22)
--- NOTE | 2022-09-10 05:26 | ED Physician Documentation ---
History of Present Illness - Stated complaint Stated Complaint: BACK PX - History obtained from History obtained from: Patient, Family (), EMS - Additonal information Additional information: Patient was just discharged and returned again after going home and falling while using his walker. Patient states it was a mechanical fall and he is having increased pain in calves and buttock and full body aches and requesting a new pain medication. PD PAST MEDICAL HISTORY - Past Medical History Cardiovascular: None Respiratory: None Neuro: None Endocrine/Autoimmune: None GI: GERD : None HEENT: None Psych: None Musculoskeletal: None Derm: None - Past Surgical History Past Surgical History: No General: Colonoscopy Ortho: Carpal Tunnel surgery - Present Medications Home Medications: Ambulatory Orders Medication Instructions Recorded Confirmed Lisinopril [Zestril] 40 mg PO DAILY 07/15/21 07/15/21 Multivitamin 1 each PO DAILY 07/15/21 07/15/21 amLODIPine [Norvasc] 10 mg PO DAILY 07/15/21 07/15/21 Lidocaine Patch 5% [Lidoderm Patch] 1 patch TOP DAILY PRN #10 patch 12/28/21 Oxycodone HCl/Acetaminophen 1 each PO Q6H PRN #14 tablet 12/28/21 [Percocet 5-325 mg Tablet] predniSONE [Prednisone 21-TAB dose 60 mg PO QDAC 6 Days #21 tab 09/10/22 pack] - Allergies Allergies/Adverse Reactions: Allergies Allergy/AdvReac Type Severity Reaction Status Date / Time sulfite Allergy Respiratory Verified 09/10/22 05:26 - Social History Does the pt smoke?: No Smoking Status: Never smoker Does the pt drink ETOH?: No Does the pt have substance abuse?: No - Immunizations Immunizations are current?: Yes - POLST Patient has POLST: No PD ED PE NORMAL - Vitals Vital signs reviewed: Yes - General General: Alert and oriented X 3, No acute distress, Well developed/nourished - HEENT HEENT: Atraumatic, PERRL, EOMI - Neck Neck: No bony TTP - Cardiac Cardiac: RRR - Respiratory Respiratory: No respiratory distress, Clear bilaterally - Abdomen Abdomen: Non tender, Non distended - Back Back: Other (wound site clean and intact.) - Derm Derm: Normal color, Warm and dry Results - Vitals Vitals: Vital Signs - 24 hr 09/10/22 05:18 Temperature 36.2 C L Heart Rate 76 Respiratory 16 Rate Blood Pressure 130/80 O2 Saturation 98 Oxygen O2 Source Room air PD Medical Decision Making - ED course ED course: 62yM p/w persistent back pain and full body pain after falling upon returning home after getting dilaudid and valium. On exam he has no acute injuries from the fall. He is requesting additional pain control. Plan to administer IM toradol and have him f/u with his surgeon. Patient responded well to toradol, sleeping in stretcher. requested we keep him in the hospital for pain control and I explained since he is sleeping and clearly pain is managed he can't stay for that. She requested first dose of steroids here and that was provided. Discussed need to f/u with surgeon and/or pcp. Return precautions given. Departure - Departure Disposition: 01 Home, Self Care Clinical Impression: Fall, Back pain, Calf pain Condition: Stable Instructions: Falls Prevent Home Comments: You were seen in the ED for persistent pain and given toradol and prednisone. Please follow up with your surgeon and return to the ED for new or worsening symptoms or other concerns. You can also consider alternative therapy for pain control including massage therapy, acupuncture, or craniosacral therapy. Tigist Lara, ANUPAMT, CCST [email or web address]
[2022-09-10] MEDS ORDERED: predniSONE 20 MG TABLET PO STA (05:51)
[2022-09-10 06:13] VITALS: BP 121/70
== END 2022-09-10 06:19 | disposition home or self-care (01) ==
LOC: EDUNIT# → ED 05:12
DX: M79.662 Pain in left lower leg (principal); M79.661 Pain in right lower leg; M54.9 Dorsalgia, unspecified
CPT/HCPCS: 96372; 99283; J7512

== ENCOUNTER 2022-10-28 17:06 | Emergency (ER) | payer OTHER ==
[2022-10-28 17:20] VITALS: BP 136/80
--- NOTE | 2022-10-28 17:27 | ED Physician Documentation ---
PD HPI WOUND RECHECK - Stated complaint Stated Complaint: STITCHES REMOVAL - Chief complaint Chief Complaint: Wound - Histroy obtained from History obtained from: Patient - History of Present Illness Location: Right Upper Extremity (dorsl radial aspect of proximal right hand.) Timing - onset: How many days ago (had laceration with small blood vessel injurhy and blood loss. He states he has been feeling okay without dizziness generally and no weakness of hand/thumb movement. Has a small numb patch dorsum of right thumb, ending at proximal to the IP joint of thumb. Normal sensation palmar aspeft. Strong move) Associated symptoms: No: Fever, Redness, Swelling Similar symptoms before: Diagnosis Recently seen: Emergency Dept (seen 10 days ago with the above sutures doing well.) PD PAST MEDICAL HISTORY - Past Medical History Past Medical History: Yes Cardiovascular: None Respiratory: None Neuro: None Endocrine/Autoimmune: None GI: GERD : None HEENT: None Psych: None Musculoskeletal: None Derm: None - Past Surgical History Past Surgical History: No General: Colonoscopy Ortho: Carpal Tunnel surgery - Present Medications Home Medications: Ambulatory Orders Medication Instructions Recorded Confirmed Lisinopril [Zestril] 40 mg PO DAILY 07/15/21 07/15/21 Multivitamin 1 each PO DAILY 07/15/21 07/15/21 amLODIPine [Norvasc] 10 mg PO DAILY 07/15/21 07/15/21 Lidocaine Patch 5% [Lidoderm Patch] 1 patch TOP DAILY PRN #10 patch 12/28/21 Meloxicam [Mobic] 7.5 mg PO BID 10 Days #20 tablet 10/18/22 - Allergies Allergies/Adverse Reactions: Allergies Allergy/AdvReac Type Severity Reaction Status Date / Time sulfite Allergy Respiratory Verified 10/28/22 17:19 - Social History Does the pt smoke?: No Smoking Status: Never smoker Does the pt drink ETOH?: No Does the pt have substance abuse?: No - Immunizations Immunizations are current?: Yes - POLST Patient has POLST: No PD ED PE NORMAL - Vitals Vital signs reviewed: Yes - General General: Alert and oriented X 3, No acute distress, Well developed/nourished - Derm Derm: Normal color, Warm and dry - Extremities Extremities: Other (good color and cap refill in thumb.) - Neuro Neuro: No motor deficit Results - Vitals Vitals: Vital Signs - 24 hr 10/28/22 17:15 Temperature 37.1 C Heart Rate 95 Respiratory 18 Rate Blood Pressure 136/80 H O2 Saturation 95 Oxygen O2 Source Room air Procedures - Suture/staple Removal (location) - Minor right thumb dorsal base Suture/staple removal: # sutures (all), No complications, Dehiscence (the skin edges themselves separate s little bit. The subcut itssue is well adherent.) Departure - Departure Disposition: 01 Home, Self Care Clinical Impression: Encounter for removal of sutures Condition: Stable Record reviewed to determine appropriate education?: Yes Instructions: ED Wound Check Sutr Remove No Infec Comments: The wound appears healing well at this point. The edges of the skin are apart a bit but the under layer seems well closed. The skin edges well-healing over time. He can support them with a Band-Aid or Steri-Strips/butterfly's just to help support the area as it continues healing. Recheck if signs of infection. Forms: PCP List Discharge Date/Time: 10/28/22 17:51
== END 2022-10-28 17:51 | disposition home or self-care (01) ==
LOC: ED 17:06
DX: S61.411D Laceration without foreign body of right hand, subsequent encounter (principal); X58.XXXD Exposure to other specified factors, subsequent encounter
CPT/HCPCS: 99281; 99282

== ENCOUNTER 2023-02-23 06:08 | Outpatient (CLI) | payer OTHER ==
[2023-02-23 06:45] LABS: BASOPHILS % (AUTO) 0.5 %; EOSINOPHILS # (AUTO) 0.2 10^3/uL (0.0-0.7); EOSINOPHILS % (AUTO) 3.9 %; HCT - HEMATOCRIT 43.2 % (42.0-52.0); HGB - HEMOGLOBIN 13.9 g/dL (14.0-18.0); LYMPHOCYTES # (AUTO) 1.9 10^3/uL (1.5-3.5); MEAN CORPUSCULAR HEMOGLOBIN 28.4 pg (27.0-31.0); MEAN CORPUSCULAR HGB CONC 32.2 g/dL (32.0-36.0); MEAN CORPUSCULAR VOLUME 88.3 fL (80.0-94.0); MEAN PLATELET VOLUME 9.2 fL (7.4-11.4); MONOCYTES # (AUTO) 0.6 10^3/uL (0.0-1.0); MONOCYTES % (AUTO) 10.6 %; NEUTROPHILS # (AUTO) 2.9 10^3/uL (1.5-6.6); NEUTROPHILS % (AUTO) 50.8 %; PLT - PLATELET COUNT 267 10^3/uL (130-450); RED BLOOD COUNT 4.89 10^6/uL (4.70-6.10); RED CELL DISTRIBUTION WIDTH 13.4 % (12.0-15.0); WHITE BLOOD COUNT 5.6 x10^3/uL (4.8-10.8)
[2023-02-23 06:55] LABS: ALBUMIN 4.5 g/dL (3.2-5.5); ALBUMIN/GLOBULIN RATIO 2.1 (1.0-2.2); ALKALINE PHOSPHATASE 60 IU/L (42-121); ALT ALANINE AMINOTRANSFERASE 25 IU/L (10-60); AST ASPARTATE AMINOTRANSFERASE 17 IU/L (10-42); BILIRUBIN,TOTAL 0.3 mg/dL (0.2-1.0); BUN - BLOOD UREA NITROGEN 19 mg/dL (6-20); CALCIUM 9.5 mg/dL (8.5-10.3); CARBON DIOXIDE - CO2 24 mmol/L (21-32); CHLORIDE 107 mmol/L (101-111); CHOL/HDL RATIO 4.1 (<5.0); CHOLESTEROL 240 mg/dL; CREATININE 0.7 mg/dL (0.6-1.3); GFR - MDRD 114 (>89); GLUCOSE 121 mg/dL (74-104); HDL CHOLESTEROL 59 mg/dL; POTASSIUM 4.1 mmol/L (3.5-4.5); SODIUM 140 mmol/L (135-145); TOTAL PROTEIN 6.6 g/dL (6.4-8.9); TRIGLYCERIDES 39 mg/dL (48-352)
[2023-02-23 07:11] LABS: THYROID STIMULATING HORMONE 1.42 uIU/mL (0.34-5.60)
== END 2023-02-23 06:09 | disposition home or self-care (01) ==
LOC: LAB 06:08
PROVIDERS: ATTEND Physician Assistant
DX: I10 Essential (primary) hypertension (principal); E78.5 Hyperlipidemia, unspecified; Z12.5 Encounter for screening for malignant neoplasm of prostate
CPT/HCPCS: 36415; 80053; 80061; 83721; 84153; 84443; 85025

== ENCOUNTER 2023-10-15 08:38 | Outpatient (CLI) | payer OTHER ==
[2023-10-15 09:21] LABS: BASOPHILS % (AUTO) 0.6 %; EOSINOPHILS # (AUTO) 0.2 10^3/uL (0.0-0.7); EOSINOPHILS % (AUTO) 3.6 %; HCT - HEMATOCRIT 44.3 % (42.0-52.0); HGB - HEMOGLOBIN 14.2 g/dL (14.0-18.0); LYMPHOCYTES # (AUTO) 1.7 10^3/uL (1.5-3.5); LYMPHOCYTES % (AUTO) 33.4 %; MEAN CORPUSCULAR HEMOGLOBIN 29.1 pg (27.0-31.0); MEAN CORPUSCULAR HGB CONC 32.1 g/dL (32.0-36.0); MEAN CORPUSCULAR VOLUME 90.8 fL (80.0-94.0); MEAN PLATELET VOLUME 9.6 fL (7.4-11.4); MONOCYTES # (AUTO) 0.5 10^3/uL (0.0-1.0); MONOCYTES % (AUTO) 9.7 %; NEUTROPHILS # (AUTO) 2.6 10^3/uL (1.5-6.6); NEUTROPHILS % (AUTO) 52.5 %; PLT - PLATELET COUNT 286 10^3/uL (130-450); RED BLOOD COUNT 4.88 10^6/uL (4.70-6.10)
[2023-10-15 09:35] LABS: ALBUMIN 4.8 g/dL (3.2-5.5); ALBUMIN/GLOBULIN RATIO 1.8 (1.0-2.2); ALKALINE PHOSPHATASE 62 IU/L (42-121); ALT ALANINE AMINOTRANSFERASE 24 IU/L (10-60); AST ASPARTATE AMINOTRANSFERASE 19 IU/L (10-42); BILIRUBIN,TOTAL 0.7 mg/dL (0.2-1.0); BUN - BLOOD UREA NITROGEN 15 mg/dL (6-20); CARBON DIOXIDE - CO2 29 mmol/L (21-32); CHLORIDE 105 mmol/L (101-111); CHOL/HDL RATIO 4.1 (<5.0); CHOLESTEROL 236 mg/dL; CREATININE 0.8 mg/dL (0.6-1.3); GFR - MDRD 98 (>89); GLUCOSE 110 mg/dL (74-104); HDL CHOLESTEROL 58 mg/dL; POTASSIUM 4.7 mmol/L (3.5-4.5); SODIUM 140 mmol/L (135-145); TOTAL PROTEIN 7.4 g/dL (6.4-8.9); TRIGLYCERIDES 38 mg/dL
[2023-10-15 09:51] LABS: THYROID STIMULATING HORMONE 0.93 uIU/mL (0.34-5.60)
[2023-10-15 11:22] LABS: ESTIMATED AVERAGE GLUCOSE 111 mg/dL (70-100); HEMOGLOBIN A1c% 5.5 % (4.27-6.07)
== END 2023-10-15 08:39 | disposition home or self-care (01) ==
LOC: LAB 08:38
PROVIDERS: ATTEND Physician Assistant
DX: I10 Essential (primary) hypertension (principal); E78.5 Hyperlipidemia, unspecified; R73.01 Impaired fasting glucose; N52.9 Male erectile dysfunction, unspecified
CPT/HCPCS: 36415; 80053; 80061; 83036; 83721; 84403; 84443; 85025